=== PATIENT | female | born 1980 | race Two or more races ===

== ENCOUNTER 2024-01-09 13:26 | Emergency (ER) | payer OTHER ==
[~2024-01-09] VITALS: Ht 170.2 cm; Wt 76.7 kg
[2024-01-09] MEDS ORDERED: ORPHENADRINE CITRATE 30 MG/ML AMPUL IM ONE (17:00)
[2024-01-09] MEDS ORDERED: KETOROLAC TROMETHAMINE 60 MG VIAL IM ONE (17:00)
[2024-01-09] MEDS ORDERED: OxyCODONE HCL/APAP UD (PERCOCET) PO ONE (19:00)
== END 2024-01-09 20:41 | disposition home or self-care (01) ==
LOC: ER 13:27
DX: S69.82XA Other specified injuries of left wrist, hand and finger(s), initial encounter (principal); W17.89XA Other fall from one level to another, initial encounter; Y93.55 Activity, bike riding; Y92.413 State road as the place of occurrence of the external cause; S89.82XA Other specified injuries of left lower leg, initial encounter; S89.81XA Other specified injuries of right lower leg, initial encounter; M54.9 Dorsalgia, unspecified; Z91.041 Radiographic dye allergy status